=== PATIENT | female | born 1985 | race Caucasian/White ===

== ENCOUNTER 2018-11-01 05:55 | Inpatient (IN) | payer OTHER ==
[~2018-11-01] VITALS: Ht 152.4 cm; Wt 83.5 kg
[2018-11-01 06:24] VITALS: BP 108/70; PULSE 85; RESP 18
[2018-11-01] MEDS ORDERED: CALC600T24 PO (06:26)
[2018-11-01] MEDS ORDERED: FERR134T PO (06:26)
[2018-11-01] MEDS ORDERED: PREN-19 PO (06:26)
[2018-11-01] MEDS ORDERED: OXYTOCIN 30 UNITS/LR 500 ML IV PRN ×3 (10:30→23:00)
[2018-11-01] MEDS ORDERED: LIDOCAINE 1% (MPF) 30 ML INJ INJ PRN (10:30)
[2018-11-01] MEDS ORDERED: MISOPROSTOL 200 MCG TAB PR PRN ×2 (10:30→23:00)
[2018-11-01] MEDS ORDERED: METHYLERGONOVINE 0.2 MG INJ IM PRN ×2 (10:30→23:00)
[2018-11-01] MEDS ORDERED: OXYTOCIN 30 UNITS/LR 500 ML IV SCH ×3 (10:30→22:49)
[2018-11-01] MEDS ORDERED: CARBOPROST 250 MCG INJ IM PRN ×2 (10:30→23:00)
[2018-11-01] MEDS: LACTATED RINGER'S 1,000 ML IV SCH ×2 (11:27→13:15)
[2018-11-01] MEDS ORDERED: BUTORPHANOL 2 MG INJ IV PRN ×2 (12:00)
[2018-11-01] MEDS ORDERED: ROPIVACAINE 0.2% 100 ML ONE (12:33)
--- NOTE | 2018-11-01 12:36 | PREAC ---
Date/Time of Note Date/Time of Note DATE: 11/01/18 TIME: 12:35 Anesthesia Eval and Record Evaluation Time Pre-Procedure Interview DATE: 11/01/18 TIME: 12:35 Age 33 Sex female NPO: 8 hrs Preoperative diagnosis iup at term Planned procedure labor epidural Past Medical History Past Medical History: None Surgery & Anesthesia Issues No known issue Meds Anticoagulation: No Beta Renee within 24 hr: No Reason Beta Renee not given: Pt. not on B-Renee Reported Medications Calcium Carbonate* (Calcium Carbonate*) 600 MG Ca Tab, 600 MG PO DAILY, TAB 11/01/18 Ferrous Sulfate (Iron) 134 Mg Tablet, 134 MG PO DAILY, TAB 11/01/18 Vit #76/Iron,Carb/FA (Prenatabs Rx Tablet) 1 Each Tablet, 1 EACH PO DAILY, TAB 11/01/18 Current Medications Lactated Ringer's 1,000 ml @ 125 mls/hr Q8H IV Last administered on 11/01/18at 11:27; Admin Dose 125 MLS/HR; Start 11/01/18 at 10:25 Lidocaine (Xylocaine 1% (Mpf)) 30 ml ONCE PRN INJ .EPISIOTOMY; Start 11/01/18 at 10:30 Oxytocin/Lactated Ringer's 500 ml @ 500 mls/hr ONCE POST IV ; Start 11/01/18 at 10:30 Oxytocin/Lactated Ringer's 500 ml @ 125 mls/hr POST IV ; Start 11/01/18 at 10:30 Oxytocin/Lactated Ringer's 500 ml @ 0 mls/hr ONCE PRN IV .VAGINAL BLEEDING; Start 11/01/18 at 10:30 Methylergonovine Maleate (Methergine) 0.2 mg ONCE PRN IM .VAGINAL BLEEDING; Start 11/01/18 at 10:30 Carboprost Tromethamine (Hemabate) 250 mcg ONCE PRN IM .VAGINAL BLEEDING; Start 11/01/18 at 10:30 Misoprostol (Cytotec) 1,000 mcg ONCE PRN NE .VAGINAL BLEEDING; Start 11/01/18 at 10:30 Butorphanol Tartrate (Stadol) 1 mg Q2H PRN IV PAIN; Start 11/01/18 at 12:00 Butorphanol Tartrate (Stadol) 2 mg Q2H PRN IV PAIN Last administered on 11/01/18at 11:54; Admin Dose 2 MG; Start 11/01/18 at 12:00 Meds reviewed: Yes Allergies Coded Allergies: No Known Allergy (Unverified , 11/01/18) Allergies Reviewed: Yes Labs/Studies Labs Reviewed: Reviewed by anesthesiologist Result Diagram: 11/01/18 1132 Laboratory Tests 11/01/18 11:32 Blood Bank Test 11/01/18 11:31 Blood Type O POSITIVE Rh Immune Globulin Candidate NO test: Positive Pre-procedure Exam Last vitals Vital Signs Date Temp Pulse Resp B/P (MAP) Pulse Ox O2 O2 Flow FiO2 Time Delivery Rate 11/01/18 98.0 85 18 108/70 Room Air 06:24 (83) Airway: Adequate mouth opening, Adequate thyromental dist Mallampati: Mallampati I Teeth: Normal Lung: Normal Heart: Normal ASA Physical Status ASA physical status: 2 Emergency: None Planned Anesthetic Neuraxial: Epidural Planned Pain Management Parenteral pain med Pre-operative Attestations Prior to commencing anesthesia and surgery, the patient was re-evaluated, there was verification of: *The patient's identity *The results of appropriate recent lab work and preoperative vital signs *The above evaluation not changing prior to induction *Anesthetic plan, risk benefits, alternative and complications discussed with patient/family; questions answered; patient/family understands, accepts and wishes to proceed. ANNAMARIE CARL Nov 01, 2018 12:36
[2018-11-01] MEDS ORDERED: ONDANSETRON 4 MG INJ IV PRN ×2 (13:30→23:00)
[2018-11-01] MEDS ORDERED: DIPHENHYDRAMINE 50 MG INJ IV PRN (13:30)
[2018-11-01] MEDS ORDERED: NALOXONE (0.4 MG/ML) INJ IV PRN (13:30)
[2018-11-01] MEDS ORDERED: FENTAnyl 2MCG/ML-ROPIV 0.2% 100 ML BAG EPI SCH (13:30)
[2018-11-01] MEDS ORDERED: KETOROLAC 30 MG INJ IV PRN (13:30)
--- NOTE | 2018-11-01 13:31 | PAC ---
Date/Time of Note Date/Time of Note DATE: 11/01/18 TIME: 13:30 Post-Anesthesia Notes Post-Anesthesia Note Last documented vital signs Vital Signs Date Temp Pulse Resp B/P (MAP) Pulse Ox O2 O2 Flow FiO2 Time Delivery Rate 11/01/18 98.0 85 18 108/70 Room Air 1330 (83) Activity: WNL Respiratory function: WNL Cardiovascular function: WNL Mental status: Baseline Pain reasonably controlled: Yes Hydration appropriate: Yes Nausea/Vomiting absent: Yes ANNAMARIE CARL Nov 01, 2018 13:31
[2018-11-01] MEDS ORDERED: AMPICILLIN 2 GM/NS (PMX) 100 ML IV ONE (21:30)
[2018-11-01] MEDS ORDERED: MINERAL OIL LIGHT 10 ML VIAL TOP PRN (21:30)
--- NOTE | 2018-11-01 22:53 | OPPN ---
Date/Time of Note Date/Time of Note DATE: 11/01/18 TIME: 22:52 Operative Report Planned Procedure Procedure date Nov 01, 2018 Procedure(s) Performed by see signature line Clerical Aide: A 2nd Clerical Aide none Pre-procedure diagnosis 38 WEEKS IUP IN LABOR [id number] Anesthesia Type: [id number] epidural Post-Procedure Post-procedure diagnosis 38 WEEKS IUP IN LABOR Findings Live Baby , Apgars8 and 9, Estimated Blood Loss: 300 - 400 mls Specimen(s) none Grafts/Implant(s) none Complication(s) none JOSY GAONA MD Nov 01, 2018 22:53
[2018-11-01] MEDS ORDERED: HYDROCODONE/APAP (5/325) TAB PO PRN ×2 (23:00)
[2018-11-01] MEDS ORDERED: DIPHENHYDRAMINE 25 MG CAP PO PRN (23:00)
[2018-11-01] MEDS ORDERED: MAGNESIUM HYDROXIDE 30ML CUP PO PRN (23:00)
[2018-11-01] MEDS ORDERED: ZOLPIDEM 5 MG TAB PO PRN (23:00)
[2018-11-01] MEDS ORDERED: WITCH HAZEL/GLYCERIN PAD PR PRN (23:00)
[2018-11-01] MEDS ORDERED: BENZOCAINE 20% 56 ML SPRAY TOP PRN (23:00)
[2018-11-01] MEDS ORDERED: NA PHOSPHATE/BIPHOS 133 ML ENEMA PR PRN (23:00)
[2018-11-01] MEDS ORDERED: METHYLERGONOVINE 0.2 MG TAB PO PRN (23:00)
[2018-11-01] MEDS ORDERED: LANOLIN HPA 1 PKT TOP PRN (23:00)
[2018-11-01] MEDS: LACTATED RINGER'S 1,000 ML IV* SCH (23:06)
[2018-11-02 00:45] VITALS: BP 112/56; PULSE 77; RESP 19
[2018-11-02] MEDS ORDERED: AMPICILLIN 1 GM/NS (PMX) 50 ML IV SCH (01:30)
[2018-11-02] MEDS: LACTATED RINGER'S 1,000 ML IV SCH (02:25)
[2018-11-02] MEDS: LACTATED RINGER'S 1,000 ML IV* SCH (03:16)
[2018-11-02 04:00] VITALS: BP 110/60; PULSE 94; RESP 18
[2018-11-02 08:30] VITALS: BP 115/77; PULSE 103; RESP 18
[2018-11-02] MEDS: SENNA/DOCUSATE NA (8.6MG/50MG) TAB PO SCH ×2 (10:09→21:00)
--- NOTE | 2018-11-02 10:18 | PREOPHP ---
DATE OF ADMISSION: 11/01/2018 HISTORY OF PRESENT ILLNESS: This is a 33-year-old lady, 1, EDC 11/13/2018 at 38 and 2/7 week s, admitted in labor. She started to have contractions about a few hours prior to admission and got worse up to the time of admission. She had care in my [facility] office and the care was complicated by diabetes, but only on diet control. She had diabetes, even before . PAST PERSONAL HISTORY: No history of TB, asthma. ALLERGIES: No ALLERGIES. SOCIAL HISTORY: The patient does not smoke. She does not drink. MEDICATIONS: She does not take any drugs except her iron and vitamins. GYNECOLOGIC HISTORY: She had menarche at the age of 14, every 28 days interval, 3 to 4 days' duratio n, and moderate in amount. FAMILY HISTORY: Mother has diabetes. REVIEW OF SYSTEMS: CARDIOVASCULAR: No chest pains. RESPIRATORY: No cough. GASTROINTESTINAL: No diarrhea, no vomiting. GENITOURINARY: No dysuria. PHYSICAL EXAMINATION: GENERAL: Reveals a conscious, coherent lady and in no acute distress. VITAL SIGNS: Her blood pressure 120/80, pulse rate 80 per minute, respirations 16 per minute. BREASTS, HEART AND LUNGS: Within normal limits. ABDOMEN: Soft. No organomegaly. Obese and fundic height 37 cm. heart tones 140 per minute. PELVIC: Done by nurse on admission revealed the cervix to be 3 to 4 cm dilated, 100% effaced, statio n 0, in cephalic presentation with the bag of water intact. This was at 7:00 a.m. done by the nurse. EXTREMITIES: No pedal edema. ADMITTING DIAGNOSIS: 38 and 2/7 weeks intrauterine , in labor and diabetes, on diet control . PLAN: The patient was planned to be observed for progress of labor. The plans were explained to the patient and she understood everything totally. The risks, benefits, and alternatives were discussed with her as well. The estimated weight by ultrasound is 3164 grams, which 7 pounds, FAN of 7. 95 and so the patient was observed and then around 7:39 p.m. she was reevaluated by me, and she was c ompletely dilated and +1 with a bag of water ruptured and she ruptured about at 7:30 p.m. She was 6 cm as examined by the nurse. She was having a lot of pain, so she received labor epidural. When she was completely dilated the epidural was stopped and when the patient was scheduled to push when she feels the pressure and the urge to push after the effect of the epidural. The plans were explained to the patient and she understood everything totally. Dictated By: JOSY GAONA MD NS/NTS Conf#: [id number] DID#: [id number] CC: JOSY GAONA MD;*End*
--- NOTE | 2018-11-02 10:29 | OPR ---
DATE OF OPERATION: 11/01/2018 This is a 33-year-old lady, 1, para 0, EDC 11/13/2018. A 38-2/7 weeks, admitted in labor. HISTORY OF PRESENT ILLNESS: See dictated history and physical. PHYSICAL EXAMINATION: See dictated history and physical. ADMITTING DIAGNOSIS: 38-2/7 weeks' intrauterine in labor and diabetes on diet control. Th e patient was observed for progress of labor. She received labor epidural and when she was 6-7 cm di lated she was given Pitocin augmentation and the patient progressed well. The patient had pushed for at least 2 hours. Then the position was noted to be a left occiput posterior and during pushing the left occiput alum operator ior was rotated with the left anterior and she progressed well after the baby had rotated. She had a normal spontaneous vaginal delivery and 11/01/2018 at 2228 hours, delivering a healthy baby girl, Ap gars 7 and 9, with 1 loop of cord around the baby's neck, plus the placenta was delivered spontaneous ly and complete. Manual exploration of the uterus revealed no membranes left behind. The cerv ix, vagina, and vulva were free of hematoma. The position was left occiput anterior after it was man ually rotated. There was 1+ meconium stain noted of the amniotic fluid when she was checked by me at 7:39 p.m. and the nurse claims that it just ruptured few minutes ago. There were bilateral mid labi al tear and both were repaired with [id number] suture with 2-0 chromic. The patient tolerated t he delivery well. ESTIMATED BLOOD LOSS: About 400 mL. Vital signs were stable during and after the delivery. Dictated By: JOSY GAONA MD NS/NTS Conf#: [id number] DID#: [id number] CC: JOSY GAONA MD;*EndCC*
[2018-11-02] MEDS ORDERED: IBUPROFEN 600 MG TAB PO PRN (13:30)
[2018-11-02 16:00] VITALS: BP 106/56; PULSE 88; RESP 18
--- NOTE | 2018-11-02 17:09 | PN ---
Date/Time of Note Date/Time of Note DATE: 11/02/18 TIME: 17:08 Assessment/Plan VTE Prophylaxis Risk score (from Ns)>0 risk: 2 SCD applied (from Ns): No SCD contraindicated: low risk/ambulating Pharmacological prophylaxis: NA/contraindicated Pharm contraindication: low risk/ambulating Lines/Catheters IV [facility]ter [facility] (from [facility] Peripheral IV Assessment/Plan Assessment/Plan POST DAY 1 HOME TOMORROW RETURN TO CLINIC IN 2 WEEKS CONTINUE WITH VITAMINS OD AND FERROUS SULFATE PO TID DIET ADVISED COUNSELED INSTRUCTED CALL OFFICE IF THERE IS ANY PROBLEMS OR CONCERN Result Diagram: 11/02/18900 Results 24hrs Laboratory Tests Test 11/01/18 18:56 11/01/18 22:59 11/01/18 23:01 11/02/18 06:27 Bedside Glucose 84 Blood Gas Blood arterial Blood venous Specimen Source Arterial Blood 11/01/2018 11:02: 11/01/2018 11:00: Date Drawn 31 PM 21 PM Arterial Blood CORD CORD Gas Puncture Site Jagdish Test N/A N/A Cord Blood 0.2 0.9 Carboxyhemoglob in Cord Arterial 7.169 L Blood pH Cord Arterial 60.1 H Blood PCO2 Cord Arterial 14.3 L Blood PO2 Cord Arterial 21.4 L Blood HCO3 Cord Arterial -8.4 Blood Base Excess POC Cord 23.8 Arterial Blood O2 Sat Cord Arterial 18.3 Blood Hemoglobin Cord Arterial 23.4 Blood Oxyhemogl obin Cord Arterial 1.6 Blood Methemogl obin Blood Gas A-a 63.5 O2 Differential Blood Gas 37.0 37.0 Temperature Blood Gas ROOM AIR ROOM AIR Modality FiO2 21.0 21.0 Blood Gas MARIA DE JESUS CANO RN Critical Value Read Back Blood Gas BR BR Notified Whom Blood Gas 11/01/2018 11:09: 11/01/2018 11:06: Notified Time 13 PM 06 PM Cord Venous 7.231 Blood pH Cord Venous 52.6 H Blood PCO2 Cord Venous 19.3 Blood PO2 Cord Venous 21.6 L Blood HCO3 Cord Venous -6.7 Blood Base Excess POC Cord Venous 39.2 Blood Oxygen Sat Cord Venous 18.8 Blood Hemoglobin Cord Venous 38.3 Blood Oxyhemogl obin Cord Venous 1.4 Blood Methemogl obin Lab Scanned REFERENCE LAB Report Test 11/02/18 09:01 White Blood 18.8 H Count Red Blood Count 4.07 L Hemoglobin 11.9 L Hematocrit 35.3 L Mean 86.7 Corpuscular Volume Mean 29.2 Corpuscular Hemoglobin Mean 33.7 Corpuscular Hemoglobin Conc ent Red Cell 13.8 Distribution Width Platelet Count 240 Mean Platelet 10.8 H Volume Immature 0.600 H Granulocytes % Neutrophils % 76.2 Lymphocytes % 18.7 Monocytes % 4.3 Eosinophils % 0.0 Basophils % 0.2 Nucleated Red 0.0 Blood Cells % Immature 0.120 H Granulocytes # Neutrophils # 14.3 H Lymphocytes # 3.5 H Monocytes # 0.8 Eosinophils # 0.0 Basophils # 0.0 Nucleated Red 0.0 Blood Cells # Hepatitis B NEGATIVE Surface Antigen Subjective 24 Hr Interval Summary Free Text/Dictation FEELS GOOD, GOOD URINE OUTPUT, GOOD BOWEL MOVEMENT Exam/Review of Systems Exam Vitals Vital Signs Date Temp Pulse Resp B/P (MAP) Pulse Ox O2 O2 Flow FiO2 Time Delivery Rate 11/02/18 98.7 88 18 106/56 Room Air 16:00 (73) Intake and Output 11/01/18 11/01/18 11/02/18 1414:59 22:59 06:59 IntakeIntake Total 1000 ml 1500 ml OutputOutput Total 800 ml 1578 ml BalanceBalance 1000 ml -800 ml -78 ml Exam VITAL SIGNS STABLE: YES AFEBRILE: YES BREAST NOT ENGORGED, NON-TENDER, NO APPRECIABLE MASS: YES LUNGS CLEAR, NO RALES, WHEEZES, RHONCHI: YES SINUS RHYTHM WITHOUT MURMUR: YES ABDOMEN: NON-TENDER FUNDUS: BELOW UMBILICUS BOWEL SOUNDS: PRESENT UTERUS: FIRM TEAR HEALING WELL LOCHIA: LIGHT DEEP TENDON REFLEXES: 0 EXTREMITIES: NO CALF TENDERNESS EDEMA SCALE: NONE Results Results 24hrs Laboratory Tests Test 11/01/18 18:56 11/01/18 22:59 11/01/18 23:01 11/02/18 06:27 Bedside Glucose 84 Blood Gas Blood arterial Blood venous Specimen Source Arterial Blood 11/01/2018 11:02: 11/01/2018 11:00: Date Drawn 31 PM 21 PM Arterial Blood CORD CORD Gas Puncture Site Jagdish Test N/A N/A Cord Blood 0.2 0.9 Carboxyhemoglob in Cord Arterial 7.169 L Blood pH Cord Arterial 60.1 H Blood PCO2 Cord Arterial 14.3 L Blood PO2 Cord Arterial 21.4 L Blood HCO3 Cord Arterial -8.4 Blood Base Excess POC Cord 23.8 Arterial Blood O2 Sat Cord Arterial 18.3 Blood Hemoglobin Cord Arterial 23.4 Blood Oxyhemogl obin Cord Arterial 1.6 Blood Methemogl obin Blood Gas A-a 63.5 O2 Differential Blood Gas 37.0 37.0 Temperature Blood Gas ROOM AIR ROOM AIR Modality FiO2 21.0 21.0 Blood Gas MARIA DE JESUS CANO RN Critical Value Read Back Blood Gas BR BR Notified Whom Blood Gas 11/01/2018 11:09: 11/01/2018 11:06: Notified Time 13 PM 06 PM Cord Venous 7.231 Blood pH Cord Venous 52.6 H Blood PCO2 Cord Venous 19.3 Blood PO2 Cord Venous 21.6 L Blood HCO3 Cord Venous -6.7 Blood Base Excess POC Cord Venous 39.2 Blood Oxygen Sat Cord Venous 18.8 Blood Hemoglobin Cord Venous 38.3 Blood Oxyhemogl obin Cord Venous 1.4 Blood Methemogl obin Lab Scanned REFERENCE LAB Report Test 11/02/18 09:01 White Blood 18.8 H Count Red Blood Count 4.07 L Hemoglobin 11.9 L Hematocrit 35.3 L Mean 86.7 Corpuscular Volume Mean 29.2 Corpuscular Hemoglobin Mean 33.7 Corpuscular Hemoglobin Conc ent Red Cell 13.8 Distribution Width Platelet Count 240 Mean Platelet 10.8 H Volume Immature 0.600 H Granulocytes % Neutrophils % 76.2 Lymphocytes % 18.7 Monocytes % 4.3 Eosinophils % 0.0 Basophils % 0.2 Nucleated Red 0.0 Blood Cells % Immature 0.120 H Granulocytes # Neutrophils # 14.3 H Lymphocytes # 3.5 H Monocytes # 0.8 Eosinophils # 0.0 Basophils # 0.0 Nucleated Red 0.0 Blood Cells # Hepatitis B NEGATIVE Surface Antigen Medications Medication Current Medications Lidocaine (Xylocaine 1% (Mpf)) 30 ml ONCE PRN INJ .EPISIOTOMY; Start 11/01/18 at 10:30 Oxytocin/Lactated Ringer's 500 ml @ 500 mls/hr ONCE POST IV Last administered on 11/01/18at 23:03; Admin Dose 500 MLS/HR; Start 11/01/18 at 10:30 Oxytocin/Lactated Ringer's 500 ml @ 125 mls/hr POST IV Last administered on 11/01/18at 23:03; Admin Dose 125 MLS/HR; Start 11/01/18 at 10:30 Oxytocin/Lactated Ringer's 500 ml @ 0 mls/hr ONCE PRN IV .VAGINAL BLEEDING; Start 11/01/18 at 10:30 Methylergonovine Maleate (Methergine) 0.2 mg ONCE PRN IM .VAGINAL BLEEDING Last administered on 11/01/18at 23:20; Admin Dose 0.2 MG; Start 11/01/18 at 10:30 Carboprost Tromethamine (Hemabate) 250 mcg ONCE PRN IM .VAGINAL BLEEDING; Start 11/01/18 at 10:30 Misoprostol (Cytotec) 1,000 mcg ONCE PRN SD .VAGINAL BLEEDING; Start 11/01/18 at 10:30 Butorphanol Tartrate (Stadol) 1 mg Q2H PRN IV PAIN; Start 11/01/18 at 12:00 Butorphanol Tartrate (Stadol) 2 mg Q2H PRN IV PAIN Last administered on 11/01/18at 11:54; Admin Dose 2 MG; Start 11/01/18 at 12:00 Fentanyl/ Ropivacaine 100 ml EPIDURAL INFUSION EPI ; Start 11/01/18 at 13:30 Oxytocin/Lactated Ringer's 500 ml @ 0 mls/hr Q0M PRN IV augmentation of labor Last administered on 11/01/18at 17:55; Admin Dose 1 MLS/HR; Start 11/01/18 at 17:00 Methylergonovine Maleate (Methergine) 0.2 mg Q6H PRN PO .VAGINAL BLEED; Start 11/01/18 at 23:00 Ibuprofen (Motrin) 600 mg Q6 PRN PO MILD PAIN LEVEL 1-3; Start 11/02/18 at 13:30 Acetaminophen/ Hydrocodone Bitart ([place] (5/325)) 1 tab Q4H PRN PO MODERATE PAIN LEVEL 4-6 Last administered on 11/02/18at 05:43; Admin Dose 1 TAB; Start 11/01/18 at 23:00 Acetaminophen/ Hydrocodone Bitart ([place] (5/325)) 2 tab Q4H PRN PO SEVERE PAIN LEVEL 7-10; Start 11/01/18 at 23:00 Ondansetron HCl (Zofran Inj) 4 mg Q6H PRN IV NAUSEA/VOMITING; Start 11/01/18 at 23:00 Diphenhydramine HCl (Benadryl) 25 mg Q6H PRN PO .PRUTITUS; Start 11/01/18 at 23:00 Zolpidem Tartrate (Ambien) 5 mg QHS PRN PO .INSOMNIA; Start 11/01/18 at 23:00 Senna/Docusate Sodium (Senokot-S) 1 tab BID PO Last administered on 11/02/18at 10:09; Admin Dose 1 TAB; Start 11/02/18 at 09:00 Magnesium Hydroxide (Milk Of Mag) 30 ml Q12H PRN PO .CONSTIPATION; Start 11/01/18 at 23:00 Sodium Biphosphate/ Sodium Phosphate (Fleet Enema) 133 ml DAILY PRN SD .CONSTIPATION; Start 11/01/18 at 23:00 Witch Gabriela/ Glycerin (Tucks Pads) 1 pad BEDSIDE MEDICATION PRN SD .HEMORRHOID/EPISIOTOMY PAIN Last administered on 11/02/18at 05:08; Admin Dose 40 PAD; Start 11/01/18 at 23:00 Benzocaine (Dermoplast [place]) 1 spray BEDSIDE MEDICATION PRN TOP .HEMMORHOID/EPISIOTOMY PAIN Last administered on 11/02/18at 05:08; Admin Dose 56 SPRAY; Start 11/01/18 at 23:00 Lanolin (Lanolin Hpa) 1 applic BEDSIDE MEDICATION PRN TOP .NIPPLES Last admi nistered on 11/02/18at 05:08; Admin Dose 1 APPLIC; Start 11/01/18 at 23:00 Measles/Mumps/ Rubella Vaccine Live (Mmr Ii Vaccine) 0.5 ml ONCE ONCE SC* ; Start 11/03/18 at 09:00; Stop 11/03/18 at 09:01 Diphtheria/ Tetanus/Acell Pertussis (Adacel) 0.5 ml ONCE ONCE IM* ; Start 11/03/18 at 09:00; Stop 11/03/18 at 09:01 Varicella Virus Vaccine Live (Varivax Vaccine With Diluent) 1,350 unit ONCE ONCE SC* ; Start 11/03/18 at 09:00; Stop 11/03/18 at 09:01 Oxytocin/Lactated Ringer's 500 ml @ 0 mls/hr ONCE PRN IV .VAGINAL BLEEDING; Start 11/01/18 at 23:00 Methylergonovine Maleate (Methergine) 0.2 mg ONCE PRN IM .VAGINAL BLEEDING; Start 11/01/18 at 23:00 Carboprost Tromethamine (Hemabate) 250 mcg ONCE PRN IM .VAGINAL BLEEDING; Start 11/01/18 at 23:00 Misoprostol (Cytotec) 1,000 mcg ONCE PRN SD .VAGINAL BLEEDING; Start 11/01/18 at 23:00 JOSY GAONA MD Nov 02, 2018 17:09
[2018-11-02 20:30] VITALS: BP 112/62; PULSE 82; RESP 19
[2018-11-03 04:15] VITALS: BP 112/66; PULSE 65; RESP 19
[2018-11-03] MEDS ORDERED: VARICELLA VACCINE LIVE/PF 1,350 UNIT/0.5 ML ML SC* ONE (09:00)
[2018-11-03] MEDS ORDERED: MEASLES,MUMPS,RUBELLA VACCINE INJ SC* ONE (09:00)
[2018-11-03] MEDS ORDERED: DIPHTH/TET/ACEL PERTUSS (ADULT) 0.5 ML VIAL IM* ONE (09:00)
[2018-11-03] MEDS: SENNA/DOCUSATE NA (8.6MG/50MG) TAB PO SCH (10:13)
[2018-11-03] MEDS ORDERED: BISACODYL 10 MG SUPP PR ONE (16:00)
[2018-11-03] MEDS ORDERED: MAGNESIUM HYDROXIDE 30ML CUP PO ONE (16:00)
--- NOTE | 2018-11-04 17:37 | PN ---
Date/Time of Note Date/Time of Note DATE: 11/03/18 TIME: 2:00PM Assessment/Plan VTE Prophylaxis Risk score (from Nsg)>0 risk: 1 SCD applied (from Nsg): No SCD contraindicated: low risk/ambulating Pharmacological prophylaxis: NA/contraindicated Pharm contraindication: low risk/ambulating Lines/Catheters IV Catheter Type (from Nrsg): Peripheral IV Assessment/Plan Assessment/Plan DAY 2 MOM AND DULCOLAX SUPPOSITORY HOME TODAY IF WITH BM Result Diagram: 11/02/18 0901 Subjective 24 Hr Interval Summary Free Text/Dictation FEELS GOOD, GOOD URINE OUTPUT, NO BOWEL MOVEMENT Exam/Review of Systems Exam Vitals Vital Signs Date Temp Pulse Resp B/P (MAP) Pulse Ox O2 O2 Flow FiO2 Time Delivery Rate 11/03/18 97.5 65 19 112/66 Room Air 04:15 (81) Exam VITAL SIGNS STABLE: YES AFEBRILE: YES BREAST NOT ENGORGED, NON-TENDER, NO APPRECIABLE MASS: YES LUNGS CLEAR, NO RALES, WHEEZES, RHONCHI: YES SINUS RHYTHM WITHOUT MURMUR: YES ABDOMEN: NON-TENDER FUNDUS: BELOW UMBILICUS BOWEL SOUNDS: PRESENT UTERUS: FIRM TEAR HEALING WELL LOCHIA: LIGHT DEEP TENDON REFLEXES: 0 EXTREMITIES: NO CALF TENDERNESS EDEMA SCALE: NONE JOSY GAONA MD Nov 04, 2018 17:37
== END 2018-11-03 19:10 | disposition home or self-care (01) | DRG 807 ==
LOC: OBT 05:55 → L-D 05:55 → OBT 10:08 → L-D 10:30 → PP1 11-02 00:39
PROVIDERS: ADMIT Obstetrics & Gynecology; ATTEND Obstetrics & Gynecology
PROC: 10E0XZZ Delivery of Products of Conception, External Approach (ICD-10-PCS; principal; 2018-11-01)
PROC: 0UQMXZZ Repair Vulva, External Approach (ICD-10-PCS; 2018-11-01)
DX: O24.12 Pre-existing type 2 diabetes mellitus, in childbirth (principal); Z37.0 Single live birth; E11.9 Type 2 diabetes mellitus without complications; O69.81X0 Labor and delivery complicated by cord around neck, without compression, not applicable or unspecified; O77.0 Labor and delivery complicated by meconium in amniotic fluid; O70.0 First degree perineal laceration during delivery; Z3A.38 38 weeks gestation of pregnancy
CPT/HCPCS: 36415; 36600; 62319; 76815; 76818; 82803; 82962; 85025; 85610; 85730; 86592; 86850; 86900; 86901; 87340; 90716; 99464; G0463; J0290; J0595; J2210; J2590; J2795; J7120